=== PATIENT | female | born 1990 | race Caucasian/White ===

== ENCOUNTER 2019-07-07 14:21 | Emergency (ER) | payer MEDICAID, OTHER ==
[2019-07-07] MEDS ORDERED: CYCLOBENZAPRINE HCL 10 MG TABLET PO ONE (14:44)
[2019-07-07] MEDS ORDERED: IBUPROFEN 600 MG TABLET PO ONE (14:44)
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
[2019-07-07 15:49] VITALS: BP 118/78
== END 2019-07-07 16:30 | disposition home or self-care (01) ==
LOC: ER 14:21
DX: T23.072A Burn of unspecified degree of left wrist, initial encounter (principal); T23.071A Burn of unspecified degree of right wrist, initial encounter; S16.1XXA Strain of muscle, fascia and tendon at neck level, initial encounter; M54.9 Dorsalgia, unspecified; M25.521 Pain in right elbow; M25.512 Pain in left shoulder; V49.9XXA Car occupant (driver) (passenger) injured in unspecified traffic accident, initial encounter; W22.11XA Striking against or struck by driver side automobile airbag, initial encounter; Y93.C2 Activity, hand held interactive electronic device
CPT/HCPCS: 72050; 72070; 99283